=== PATIENT | female | born 1985 | race Two or more races ===

== ENCOUNTER → 2018-04-30 | Outpatient (CLI) | payer OTHER ==
[~2018-04-30] MED LIST: AMOCLA875 PO; BENZ100A PO; CODGUAEL PO; FLUT.05NI; HYDACE5 PO; IBUP600 PO; Norco 7.5-3251 EACH PO; PENVK500 PO; PSEU120ER PO; Veetids 500500 MG PO; Vibramycin100 MG PO
== END ==
LOC: LAB SHORT 19:08 → LAB 19:08
PROVIDERS: Nurse Practitioner Family
DX: Z01.419 Encounter for gynecological examination (general) (routine) without abnormal findings (principal)
CPT/HCPCS: G0145

== ENCOUNTER → 2020-05-10 | Outpatient (CLI) | payer OTHER ==
[2020-05-11 10:41] LABS: Candida species (DNA Probe) Negative (NEGATIVE); G. vaginalis (DNA Probe) Positive (NEGATIVE); T. vaginalis (DNA Probe) Negative (NEGATIVE)
== END | disposition home or self-care (01) ==
LOC: LAB SHORT 14:00 → PLD 14:00
PROVIDERS: Family Medicine
DX: N76.0 Acute vaginitis (principal)
CPT/HCPCS: 87480; 87510; 87660

== ENCOUNTER 2022-05-17 07:32 | Day surgery (SDC) | payer OTHER ==
[~2022-05-17] VITALS: Ht 157.5 cm; Wt 60.1 kg
== END 2022-05-17 10:25 | disposition home or self-care (01) ==
LOC: ORSCSDS 07:32
PROVIDERS: Internal Medicine Gastroenterology
PROC: 0DJD8ZZ Inspection of Lower Intestinal Tract, Via Natural or Artificial Opening Endoscopic (ICD-10-PCS; principal; 2022-05-17 09:15)
DX: K62.5 Hemorrhage of anus and rectum (principal); K62.89 Other specified diseases of anus and rectum; K59.00 Constipation, unspecified; Z86.010 Personal history of colon polyps; K64.8 Other hemorrhoids; K64.4 Residual hemorrhoidal skin tags; Z79.899 Other long term (current) drug therapy
CPT/HCPCS: J2704; J7120

== ENCOUNTER → 2023-04-24 | Outpatient (CLI) | payer OTHER ==
[2023-05-04 06:36] LABS: HPV GENOTYPE 16 Not Detected; HPV GENOTYPE 18 Not Detected; HPV HIGH RISK Detected; HPV SOURCE Cervical
== END | disposition home or self-care (01) ==
LOC: LAB 16:34 → LAB SHORT 16:34
PROVIDERS: Family Medicine
DX: Z01.419 Encounter for gynecological examination (general) (routine) without abnormal findings (principal)
CPT/HCPCS: 87624; G0123

== ENCOUNTER 2024-04-21 22:19 | Emergency (ER) | payer OTHER ==
[~2024-04-21] VITALS: Ht 157.5 cm; Wt 54.4 kg
[2024-04-21 22:22] VITALS: BP 126/93
[2024-04-21] MEDS ORDERED: OxyCODONE HCL 5 MG TAB PO ONE (22:50)
[2024-04-21] MEDS ORDERED: HYDROCORTISON28.4 G4 TOP (22:53)
== END 2024-04-21 23:02 | disposition home or self-care (01) ==
LOC: ER 22:19
DX: K64.4 Residual hemorrhoidal skin tags (principal); K62.89 Other specified diseases of anus and rectum
CPT/HCPCS: 99282; A9270